=== PATIENT | female | born 1965 | race Caucasian/White ===

== ENCOUNTER → 2023-08-14 14:30 | Outpatient (REF) | payer BC, SELFPAY | LOC: HWWDC 14:30 | PROVIDERS: ATTENDING PHYSICIAN Obstetrics & Gynecology | DX: Z12.31 Encounter for screening mammogram for malignant neoplasm of breast (principal) | CPT/HCPCS: 77063; 77067 ==

== ENCOUNTER → 2023-11-09 08:55 | Outpatient (REF) | payer BC, SELFPAY | LOC: WDC 08:55 | DX: R92.2 Inconclusive mammogram (principal) | CPT/HCPCS: 76641 ==